=== PATIENT | male | born 1945 | race Caucasian/White ===

== ENCOUNTER 2019-12-15 16:17 | Emergency (ER) | payer MEDICARE ==
--- OUTSIDE RECORDS SUMMARY | 2019-12-15 16:20 | XMS REPORT ---
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, without long-term current use of insulin Problem Mixed hyperlipidemia E78.2 Active Problem Proteinuria, unspecified type R80.9 Active Problem Type 2 diabetes mellitus with E11.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, without long-term current use of insulin Problem Diverticular disease K57.90 Active Problem Thrombocytopenia D69.6 Active Problem Benign essential hypertension I10 Active Problem Arteriosclerosis of coronary I25.10 Active artery Problem Diabetes mellitus type 2, E11.9 Ac tive uncontrolled, without complications Problem Kidney stone N20.0 Active Medications Medication Code System Code Instructions Start End Date Status Dos age Date Glimepiride [facility] 56528467051 4 MG Orally Active 1 ta blet Twice a day with a meal Results No Known Results Summary Purpose [employer] Submission
--- OUTSIDE RECORDS SUMMARY | 2019-12-15 16:20 | XMS REPORT | Continuity of Care Document ---
:1945 Author Organization [facility] t Address [address] [place] [address] Care Team Providers Name Role Phone Unavailable Unavailable Unavailable Problems Condition Condition Condition Status Onset Resolution Last Treating Co mments Source Name Details Category Date Date Treatment Clinician Date Mixed Mixed Problem Active [facility] hyperlipid hyperlipid [facility] History of History of Problem Active [facility] coronary coronary [facility] artery artery [facility] stent stent l placement placement Outp ati ent Clinics Proteinuri Proteinuri Problem Active [facility] a, a, [facility] - unspecifie unspecifie Me moria d type d type l [facility] Diabetes Diabetes Problem Active [facility] mellitus mellitus [facility] - type 2, type 2, Memoria uncontroll uncontroll l ed, ed, Outpati without without ent complicati complicati Cl inics ons ons Kidney Kidney Problem Active [facility] stone stone [facility] Diverticul Diverticul Problem Active [facility] ar disease ar disease [place] [facility] - [facility] ent Clinics History of History of Problem Active [facility] placement placement [facility] - of of Memoria internal internal l cardiac cardiac Outpati defibrilla defibrilla en t tor tor Clinics Chronic Chronic Problem Active [facility] kidney kidney [facility] - disease, disease, Memori a stage 3 stage 3 l Outpati ent Clinics Benign Benign Problem Active [facility] essential essential [facility] - hypertensi hypertensi Me moria on on l Outpati ent Clinics Arterioscl Arterioscl Problem Active [facility] erosis of erosis of Luke s - coronary coronary Memori a artery artery l Outpati ent Clinics Type 2 Type [address] [facility] diabetes diabetes [facility] - mellitus mellitus Memori a with right with right l eye eye Outpati affected affected ent by mild by mild Clinics nonprolife nonprolife rative rative retinopath retinopath y without y without macular macular edema, edema, without without long-term long-term current current use of use of insulin insulin Thrombocyt Thrombocyt Problem Active [facility] openia openia [facility] Allergies, Adverse Reactions, Alerts Allergy Allergy Status Severity Reaction(s) Onset Inactive Treating Comm ents Source Name Type Date Date Clinician NSAIDS Adverse Active Info Not [facility] Reaction Available [facility] Ibuprofe Adverse Active Info Not [facility] n Reaction Available [facility] Medications Ordered Filled Start Stop Current Ordering Indication Dosage Frequency Signature Comments Components Source Medication Medication Date Date Medication? Clinician (SIG) Name Name Glimepiride Glimepiride Yes Vikash [address] [facility] Hickey with a [facility] Procedures This patient has no known procedures. Encounters Start End Encounter Admission Attending Care Care Encounter Source Date/Time Date/Time Type Type Clinicians Facility Department ID 2019-10-19 2019-10-19 [facility] [id number] [facility] 09:17:00 09:17:00 Code Fever [facility] ent [facility] 2019-10-05 2019-10-05 [facility] [id number] [facility] 08:15:00 08:15:00 Appinions Active [employer] [facility] ent Clinics 2019-07-06 2019-07-06 [facility] [id number] 08:30:00 08:30:00 Code Fever [facility] ent Clinics 2019-04-06 2019-04-06 [facility] [id number] [address] 11:00:00 11:00:00 Code Fever [employer] [facility] ent Clinics 2019-04-06 2019-04-06 [facility] [id number] 10:55:00 10:55:00 [employer] [facility] ent [facility] 2019-03-29 2019-03-29 [facility] [id number] 16:55:00 16:55:00 [employer] [facility] l Medicine Outpati ent Clinics 2019-01-13 2019-01-13 [facility] [id number] 10:00:00 10:00:00 [place] [employer] [facility] - [facility] l Medicine Outpati ent Clinics 2018-12-30 2018-12-30 [facility] [id number] 09:30:00 09:30:00 [place] [employer] s - Drive [facility] l Medicine Outpati ent Clinics 2018-10-04 2018-10-04 [facility] [id number] 13:26:00 13:26:00 [place] [employer] s - Drive [facility] Medicine Outpati ent Clinics 2018-09-30 2018-09-30 [facility] [id number] 15:49:00 15:49:00 [place] - [facility] Medicine Outpati ent Clinics 2018-09-29 2018-09-29 [facility] [id number] 09:45:00 09:45:00 [place] - [facility] Medicine Outpati ent Clinics 2018-06-28 2018-06-28 [facility] [id number] 10:15:00 10:15:00 [place] - [facility] Medicine Outpati ent Clinics 2018-05-18 2018-05-18 [facility] [id number] 13[facility]42:00 13:42:00 [place] [employer] s - Drive [facility] Medicine Medicine Outpati ent Clinics 2018-03-29 2018-03-29 [facility] [id number] 10:15:00 10:15:00 [place] [employer] s - Drive [facility] Medicine Outpati ent Clinics 2018-03-24 2018-03-24 [facility] [id number] 15:39:00 15:39:00 [place] [employer] s - Drive [facility] l Medicine Outpati ent Clinics 2017-12-31 2017-12-31 [facility] [id number] 17:03:00 17:03:00 t [employer] - [employer] [facility] Medicine Outpati ent Clinics 2017-12-30 2017-12-30 [facility] [id number] 15:18:00 15:18:00 t [employer] [facility] Medicine Outpati ent Clinics 2017-12-24 2017-12-24 [facility] [id number] 11:23:00 11:23:00 t [employer] [facility] Medicine Outpati ent Clinics 2017-12-24 2017-12-24 [facility] [id number] 10[facility]00:00 10:00:00 t [employer] [facility] Medicine Outpati ent Clinics 2017-10-02 2017-10-02 [facility] [id number] 14:52:00 14:52:00 t [employer] [facility] Medicine Outpati ent Clinics 2017-09-08 2017-09-08 [facility] [id number] 10:15:00 10:15:00 t [employer] [facility] Medicine Outpati ent Clinics Results This patient has no known results.
--- OUTSIDE RECORDS SUMMARY | 2019-12-15 16:20 | XMS REPORT ---
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, without long-term current use of insulin Assessment Anemia, unspecified type D64.9 Act yuliana Problem Diverticular disease K57.90 Active Assessment Thrombocytopenia D69.6 Active Assessment History of coronary artery stent Z95.5 Active placement Problem Thrombocytopenia D69.6 Active Problem Benign essential hypertension I10 Active Problem Arteriosclerosis of coronary I25.10 Active artery Problem Diabetes mellitus type 2, E11.9 Ac tive uncontrolled, without complications Problem Kidney stone N20.0 Active Assessment Diverticular disease K57.90 Active Assessment Chronic kidney disease, stage 3 N18.3 Active Assessment Mixed hyperlipidemia E78.2 Active Assessment Proteinuria, unspecified type R80.9 Active Assessment Type 2 diabetes mellitus with E11.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 89793042350 16 MG Active TAKE 1 Cilexetil TABLET BY MOUTH ONCE DAILY FOR 90 DAYS Rosuvastatin ND 84286477448 20 MG Oral Active TAKE 1 Calcium TABLET BY MOUTH ONCE DAILY Furosemide ND 15599583917 40 MG Orally Active 1 ta blet Once a day MetFORMIN HCl [facility] 85387481570 500 MG Oral Active ta ke 1 ER Once a day tablet by mouth once daily Candesartan [facility] 46682206591 16 MG Orally Active 1 t ablet Cilexetil Once a day Vitamin D3 [facility] 38050446484 1000 UNIT Active 1 table t Orally Once a day Glimepiride [facility] 19329086011 4 MG Orally Active 1 ta blet Twice a day with breakfast or the first main meal of the day Tamsulosin HCl [facility] 49002904352 0.4 MG Orally Active 1 capsule Once a day Norvasc [facility] 57336691150 5 MG Orally Active 1 tablet Once a day Simvastatin [facility] 11948998777 40 MG Orally Inactive 1 tablet in Once a day the evening Aspirin 81 [facility] 78794004298 81 MG Orally Active 1 ta blet Once a day Results No Known Results Summary Purpose eClinicalWorks Submission
[2019-12-15] MEDS ORDERED: CEFTRIAXONE/SWI 1gm 1 GM/10 ML SYR ONE (17:24)
--- NOTE | 2019-12-15 17:27 | ER ---
Nurse's Notes [facility] Name: Jonathan Presley Jr Age: 74 yrs Sex: Male : 1945 Arrival Date: 12/15/2019 Time: 16:19 Bed 20 Private MD: Diagnosis: Acute prostatitis Presentation: 12/14 16:33 Chief complaint: Patient states: Seen by Dr. Peralta today and had outpatient labs ss obtained. Pt was instructed to come to ER because his white count was elevated. C/o burning with urination x 2-3 days. Chief complaint:. Coronavirus screen: Client denies travel out of the [place] in the last 14 days. Ebola Screen: Patient denies exposure to infectious person. Patient denies travel to an Ebola-affected area in the 21 days before illness onset. Initial Sepsis Screen: Does the patient meet any 2 criteria? No. Patient's initial sepsis screen is negative. Does the patient have a suspected source of infection? Yes: Dysuria/Frequency/Urgency/UTI. Risk Assessment: Do you want to hurt yourself or someone else? Patient reports no desire to harm self or others. Onset of symptoms was December 15, 2019. 16:33 Method Of Arrival: Ambulatory ss 16:33 Acuity: KARELY 3 ss Triage Assessment: 16:57 General: Appears in no apparent distress. Behavior is calm, cooperative, appropriate ll2 for age. 17:18 Pain: Denies pain. ll2 Historical: - Allergies: 16:36 Ibuprofen; ss - PMHx: 16:36 Diabetes; Kidney stones; ss - PSHx: 16:36 heart cath; Defibrillator; ss - Immunization history:: Adult Immunizations up to date. - Social history:: Smoking status: Patient denies any tobacco usage or history of. - Family history:: not pertinent. - Hospitalizations: : No recent hospitalization is reported. Screenin:56 Abuse screen: Denies threats or abuse. Nutritional screening: No deficits noted. ll2 Tuberculosis screening: No symptoms or risk factors identified. Fall Risk None identified. Assessment: 16:55 Reassessment: shaver to bedside after reviewing labs and CT scan from today, decision to ll2 hospitalize due to prostitis, discussing with pt at bedside. Vital Signs: 16:33 BP 126 / 76; Pulse 77; Resp 16; Temp 98.9(TE); Pulse Ox 97% on R/A; Weight 89.81 kg; Height 5 ft. 9 in. (175.26 cm); Pain 0/10; 16:56 BP 126 / 76; Pulse 77; Resp 16; Temp 98.9; Pulse Ox 98% on R/A; ll2 16:33 Body Mass Index 29.24 (89.81 kg, 175.26 cm) ED Course: 16:19 Patient arrived in ED. ag5 16:35 Triage completed. ss 16:36 Arm band placed on right wrist. ss 16:49 Rachid Shaver MD is Attending Physician. rn 16:55 Lashanda Rebollar, LURDES is Primary Nurse. ll2 16:57 Patient has correct armband on for positive identification. Bed in low position. Side ll2 rails up X 1. Pulse ox on. NIBP on. 17:39 No provider procedures requiring assistance completed. Inserted saline lock: 20 gauge ll2 in left forearm, using aseptic technique. ,using aseptic technique. inserted by Stephanie CHATMAN. 17:40 IV discontinued, intact, bleeding controlled, No redness/swelling at site. Pressure ll2 dressing applied. Administered Medications: 17:16 Drug: Rocephin 1 grams Route: IV; Rate: calculated rate; Site: right forearm; ll2 17:17 Follow up: IV Status: Completed infusion ll2 17:17 Follow up: Response: No adverse reaction ll2 Outcome: 17:26 Discharge ordered by . rn 17:39 Discharged to home ambulatory. ll2 17:39 Condition: stable 17:39 Discharge instructions given to patient, Instructed on discharge instructions, follow up and referral plans. medication usage, Demonstrated understanding of instructions, follow-up care, medications. 17:41 Patient left the ED. ll2 Signatures: Rachid Shaver MD MD rn Smirch, Shelby, RN RN [facility] Lashanda Rebollar, LURDES RN ll2
--- NOTE | 2019-12-15 17:27 | EDPHYS ---
Physician Documentation [facility] Name: Jonathan Presley Jr Age: 74 yrs Sex: Male : 1945 Arrival Date: 12/15/2019 Time: 16:19 Bed 20 Private MD: ED Physician Rachid Shaver HPI: 12/14 17:01 This 74 yrs old Male presents to ER via Ambulatory with complaints of UTI. rn 17:01 The patient presents with urinary symptoms, dribbling of urine. Onset: The rn symptoms/episode began/occurred 2 day(s) ago. Modifying factors: The symptoms are alleviated by nothing, the symptoms are aggravated by nothing. Associated signs and symptoms: Pertinent negatives: abdominal pain, fever. Severity of symptoms: At their worst the symptoms were mild, in the emergency department the symptoms are unchanged. The patient has experienced similar episodes in the past. Reports sent here by Dr. Peralta for UTI and elevated white blood cell count. No fever/chills. Reports recent dribbling but able to urinate. Reports had CT abdomen and bloodwork and UTI today. Reports doesn't feel ill, but can tell something is happening, similar to previous UTIs.. Historical: - Allergies: 16:36 Ibuprofen; ss - PMHx: 16:36 Diabetes; Kidney stones; ss - PSHx: 16:36 heart cath; Defibrillator; ss - Immunization history:: Adult Immunizations up to date. - Social history:: Smoking status: Patient denies any tobacco usage or history of. - Family history:: not pertinent. - Hospitalizations: : No recent hospitalization is reported. ROS: 17:01 Constitutional: Negative for fever, chills, and weight loss, Eyes: Negative for injury, rn pain, redness, and discharge, Cardiovascular: Negative for chest pain, palpitations, and edema, Respiratory: Negative for shortness of breath, cough, wheezing, and pleuritic chest pain, Abdomen/GI: Negative for nausea, vomiting, diarrhea, and constipation, : Negative for injury, bleeding, discharge, and swelling, MS/Extremity: Negative for injury and deformity, Skin: Negative for injury, rash, and discoloration, Neuro: Negative for headache, weakness, numbness, tingling, and seizure. Exam: 17:01 Constitutional: This is a well developed, well nourished patient who is awake, alert, rn and in no acute distress. Head/Face: Normocephalic, atraumatic. Cardiovascular: Regular rate and rhythm. No pulse deficits. Respiratory: No increased work of breathing, no retractions or nasal flaring. Abdomen/GI: soft, non-tender Skin: Warm, dry MS/ Extremity: Pulses equal, no cyanosis. Neurovascular intact. Full, normal range of motion. Equal circumference. Neuro: Awake and alert, GCS 15 Vital Signs: 16:33 BP 126 / 76; Pulse 77; Resp 16; Temp 98.9(TE); Pulse Ox 97% on R/A; Weight 89.81 kg; ss Height 5 ft. 9 in. (175.26 cm); Pain 0/10; 16:56 BP 126 / 76; Pulse 77; Resp 16; Temp 98.9; Pulse Ox 98% on R/A; ll2 16:33 Body Mass Index 29.24 (89.81 kg, 175.26 cm) ss MDM: 16:49 Patient medically screened. rn 17:23 Differential diagnosis: UTI, prostatitis, urethritis. Data reviewed: vital signs, rn nurses notes, lab test result(s), radiologic studies, CT scan, and as a result, I will admit patient. Counseling: I had a detailed discussion with the patient and/or guardian regarding: the historical points, exam findings, and any diagnostic results supporting the discharge/admit diagnosis, lab results, radiology results, the need for further work-up and treatment in the hospital. ED course: Notified patient of recommendation to admit to hospital, he states has with MS at home along with children at home, and does not want to be admitted to hospital unless absolutely needs to. Patient with normal vitals, + prostatitis, able to urinate, understands risks of going home and oral abx vs IV abx in hospital, wants to go home and will return if symptoms worsen. . 12/14 16:59 Order name: IV Start; Complete Time: 17:02 rn Administered Medications: 17:16 Drug: Rocephin 1 grams Route: IV; Rate: calculated rate; Site: right forearm; ll2 17:17 Follow up: IV Status: Completed infusion ll2 17:17 Follow up: Response: No adverse reaction ll2 Disposition: 12/15/19 17:26 Discharged to Home. Impression: Acute prostatitis. - Condition is Stable. - Discharge Instructions: Prostatitis. - Prescriptions for cefpodoxime 100 mg Oral Tablet - take 2 tablet by ORAL route every 12 hours for 10 days take with food; 40 tablet. - Medication Reconciliation Form, Thank You Letter, Antibiotic Education, Prescription Opioid Use form. - Follow up: Private Physician; When: 2 - 3 days; Reason: Recheck today's complaints, Re-evaluation by your physician. - Problem is new. - Symptoms are unchanged. Signatures: Rachid Shaver MD MD rn Smirch, Shelby, RN RN Lashanda Rebollar RN RN ll2 Corrections: (The following items were deleted from the chart) 17:41 17:26 12/15/2019 17:26 Discharged to Home. Impression: Acute prostatitis. Condition is ll2 Stable. Forms are Medication Reconciliation Form, Thank You Letter, Antibiotic Education, Prescription Opioid Use. Follow up: Private Physician; When: 2 - 3 days; Reason: Recheck today's complaints, Re-evaluation by your physician. Problem is new. Symptoms are unchanged. rn
[2019-12-15 17:54] VITALS: BP 126/76; TEMP 98.9
[2019-12-15 17:59] VITALS: O2SAT 98
== END 2019-12-15 17:41 | disposition home or self-care (01) ==
LOC: ER 16:17
DX: N41.0 Acute prostatitis (principal); Z88.6 Allergy status to analgesic agent; Z87.442 Personal history of urinary calculi; Z95.810 Presence of automatic (implantable) cardiac defibrillator
CPT/HCPCS: 96374; 99283; J0696

== ENCOUNTER 2021-04-30 06:33 | Day surgery (SDC) | payer OTHER ==
[2021-04-25 13:55] LABS: Absolute Lymphocytes (CBC) 1.4 K/uL (0.7-4.9); Hematocrit 36.3 % (39.6-49.0); Lymphocytes % 16.2 % (15.3-44.8); MPV 8.4 fL (7.6-11.3); RBC Red Blood Cell Count 4.23 M/uL (4.33-5.43)
--- NOTE | 2021-04-25 14:01 | RAD REPORT ---
EXAM DESCRIPTION: RAD - Chest Pa And Lat (2 Views) - 04/25/2021 1:52 pm CLINICAL HISTORY: Pre op pending heart cath Chest pain. COMPARISON: ABDOMEN 1 VIEW KUB dated 10/27/2013 FINDINGS: The lungs are clear. The heart is normal in size. No displaced fractures. Single lead pace r/ defibrillator device. IMPRESSION: No acute or concerning finding suspected.
[2021-04-25 14:06] LABS: Protime INR 0.99
[2021-04-25 14:23] LABS: Potassium 4.4 mmol/L (3.5-5.1)
[2021-04-30] MEDS ORDERED: NA CHLORIDE 0.9% 500 ML ONE (06:52)
[2021-04-30] MEDS ORDERED: HEPA 1000U/500MLS 1,000 UNIT/500 ML BAG IV ONE (06:54)
[2021-04-30] MEDS ORDERED: LIDOCAINE 1% 20 ML MDV ONE (06:54)
[2021-04-30] MEDS ORDERED: FENTANYL CITR 100 MCG/2 ML ONE (07:03)
[2021-04-30] MEDS ORDERED: NA CHLORIDE 0.9% 0 ML ONE (07:04)
[2021-04-30] MEDS ORDERED: ATROPINE SULF 1 MG/10 ML SYR IV ONE (07:04)
[2021-04-30] MEDS ORDERED: MIDAZOLAM HCL 2 MG/2 ML INJ ONE ×2 (07:04→07:29)
--- NOTE | 2021-04-30 08:49 | OP ---
Surgeon: Roberto Pina MD Criminology Teacher: Ms. Darien Brewster Reason For Admission: Left heart catheterization, selective coronary arteriogram. Indication: Coronary artery disease, status post stents in the past with unstable angina. Procedure In Detail: In the cathode maker, the patient was prepped and draped in the routine sterile [facility] ion. He was given Versed and fentanyl for sedation. A 6-Japanese sheath was introduced in the right c ommon femoral artery successfully using the Seldinger technique and 10 cc of Xylocaine. The JL4 cath eter cannulated the left main. His left main had some mild plaquing. He had a patent proximal LAD s tent and 100% occlusion of his first obtuse marginal. Small circumflex nondominant. The JR4 cannula champ the RCA. He had a 99% long ostial RCA stenosis with SPENCER 1 flow, very right dominant. The patie nt tolerated the procedure well. There were no complications. Blood Loss: 5 mL. Postoperative Diagnosis: High risk coronary artery disease. He needs an intervention. I will plan to have Dr. Strauss review the film and maybe do intervention in [place]. He may need an atherectomy of the RCA. The patient had [employer] done for closure of his groin. He will be in the hospital for 2 hours and he will go home after that. We will make arrangements for the outpatien t procedures. EFRAIN/ALICIA Voice ID: [id number] Report ID: [id number]
[2021-04-30 09:25] VITALS: BP 109/68; O2SAT 97
== END 2021-04-30 09:30 | disposition home or self-care (01) ==
LOC: CCL 06:33
DX: I25.110 Atherosclerotic heart disease of native coronary artery with unstable angina pectoris (principal); I25.82 Chronic total occlusion of coronary artery; I65.21 Occlusion and stenosis of right carotid artery; I10 Essential (primary) hypertension; E78.2 Mixed hyperlipidemia; E11.9 Type 2 diabetes mellitus without complications; Z95.5 Presence of coronary angioplasty implant and graft; Z95.810 Presence of automatic (implantable) cardiac defibrillator; Z82.49 Family history of ischemic heart disease and other diseases of the circulatory system
CPT/HCPCS: 85025; 80048; 36415; 85610; 82947; 85730; 71046; 93454; U0002; C1893; J2250; J3010; J7040; J1644; J0583

== ENCOUNTER 2023-12-29 07:13 | Day surgery (SDC) | payer OTHER ==
[2023-12-25 13:18] LABS: Absolute Basophils 0.1 K/uL (0-0.5); Absolute Eosinophils 0.4 K/uL (0-0.5); Absolute Lymphocytes (CBC) 1.7 K/uL (0.7-4.9); Absolute Monocytes 0.9 K/uL (0.1-1.3); Absolute Neutrophil 7.3 K/uL (1.8-8.0); Basophils % 0.6 % (0-1.3); Eosinophils % 4.2 % (0-4.4); Hematocrit 33.6 % (39.6-49.0); Hemoglobin 10.8 g/dL (13.6-17.9); Lymphocytes % 16.1 % (15.3-44.8); MCH 27.5 pg (27.0-35.0); MCHC 32.2 g/dL (32.0-36.0); MCV 85.3 fL (80-100); MPV 9.6 fL (7.6-11.3); Monocytes % 8.3 % (3.3-12.3); Neutrophils % 70.8 % (41.7-73.7); Platelets 136 thou/uL (152-406); RBC Red Blood Cell Count 3.94 M/uL (4.33-5.43); Red Cell Distribution Width 16.3 % (12.1-15.2)
[2023-12-25 13:29] LABS: Anion Gap 8.1 mEq/L (5.0-15.0); Potassium 5.1 mEq/L (3.5-5.1)
[2023-12-29] MEDS ORDERED: GLYCOPYRROLATE 0.2 MG/ML SYR ONE (07:19)
[2023-12-29] MEDS ORDERED: LIDOCAINE 1% MPF 30 ML VIAL ONE (07:19)
[2023-12-29] MEDS ORDERED: propofoL 200 MG/20 ML VIAL IV ONE ×2 (07:19→08:50)
[2023-12-29] MEDS ORDERED: NA CHLORIDE 0.9% 1,000 ML ONE (07:32)
[2023-12-29] MEDS ORDERED: EPINEPHRINE 1 MG/ML VIAL ONE (08:01)
[2023-12-29 10:05] VITALS: TEMP 97
[2023-12-29 10:08] VITALS: BP 105/59; O2SAT 100
== END 2023-12-29 09:48 | disposition home or self-care (01) ==
LOC: OR 07:13
PROVIDERS: ATTEND Internal Medicine Gastroenterology
PROC: 0DBL8ZX Excision of Transverse Colon, Via Natural or Artificial Opening Endoscopic, Diagnostic (ICD-10-PCS; 2023-12-29)
PROC: 0DBN8ZX Excision of Sigmoid Colon, Via Natural or Artificial Opening Endoscopic, Diagnostic (ICD-10-PCS; 2023-12-29)
PROC: 0DBK8ZX Excision of Ascending Colon, Via Natural or Artificial Opening Endoscopic, Diagnostic (ICD-10-PCS; principal; 2023-12-29 08:30)
DX: K92.1 Melena (principal); I10 Essential (primary) hypertension; E11.9 Type 2 diabetes mellitus without complications; N18.9 Chronic kidney disease, unspecified; I25.2 Old myocardial infarction; D12.2 Benign neoplasm of ascending colon; D12.3 Benign neoplasm of transverse colon; D12.5 Benign neoplasm of sigmoid colon; K57.30 Diverticulosis of large intestine without perforation or abscess without bleeding
CPT/HCPCS: 85025; 80048; 36415; 82947 ×2; 88305; 45385; J2704 ×2; J2001; J0171; J7030

== ENCOUNTER 2024-01-07 13:20 | Day surgery (SDC) | payer OTHER ==
[2024-01-06 11:22] LABS: PT Prothrombin Time 10.9 SECONDS (9.4-12.5); PTT, Activated Partial Thromb 33.1 SECONDS (24.3-36.9); Protime INR 0.97
--- NOTE | 2024-01-06 11:24 | RAD REPORT ---
EXAMINATION: TWO VIEW CHEST XR CLINICAL INDICATION: Male, 78 years old. [facility] MAIN Hypertension PRE OP TECHNIQUE: 2 view radiographs of the chest were performed. COMPARISON: 05/07/2022 and 04/25/2021 FINDINGS: The lungs are well inflated and clear. Left chest wall pacer in place. No pneumothorax or sizable eff usion. The heart is normal in size. Mediastinal contours are unremarkable. IMPRESSION: No acute or significant abnormalities.
--- NOTE | 2024-01-07 11:53 | EKG ---
Test Date: 2024-01-06 Test Time: 10:43:28 Milk Pasteurizer: CARTER MEASUREMENT RESULTS: Intervals: Rate: 63 NM: 208 QRSD: 76 QT: 384 QTc: 392 [place]: P: 48 NM: 208 QRS: 37 T: 13 INTERPRETIVE STATEMENTS: Sinus rhythm with occasional premature ventricular complexes Low voltage QRS Nonspecific T wave abnormality Abnormal ECG No previous ECG available for comparison Electronically Signed On 01-07-24 11:51:08 CDT by Ashkan Bazan
[2024-01-07 14:04] LABS: Anion Gap 6.5 mEq/L (5.0-15.0); Potassium 4.5 mEq/L (3.5-5.1)
[2024-01-07] MEDS ORDERED: HEPA 1000U/500MLS 2,000 UNIT/1,000 ML BAG IV ONE (15:14)
[2024-01-07] MEDS ORDERED: LIDOCAINE 1% 20 ML MDV ONE (15:14)
[2024-01-07] MEDS ORDERED: VERAPAMIL HCL 10 MG/4 ML VIAL IV ONE (15:14)
[2024-01-07] MEDS ORDERED: HEPARIN 10,000 UNIT/10 ML VIAL IV ONE (15:14)
[2024-01-07] MEDS ORDERED: TICAGRELOR 90 MG TABLET PO ONE (15:15)
[2024-01-07] MEDS ORDERED: CLOPIDOGREL 75 MG TABLET ONE (15:15)
[2024-01-07] MEDS ORDERED: HEPARIN 5000 UNIT/ML 1 ML VIAL ONE (15:15)
[2024-01-07] MEDS ORDERED: ATROPINE SULF 1 MG/10 ML SYR IV ONE (15:15)
[2024-01-07] MEDS ORDERED: ASPIRIN 325 MG TAB ONE (15:15)
[2024-01-07] MEDS ORDERED: MIDAZOLAM HCL 2 MG/2 ML INJ ONE (15:24)
[2024-01-07] MEDS ORDERED: FENTANYL CITR 100 MCG/2 ML ONE (15:24)
[2024-01-07] MEDS: NA CHLORIDE 0.9% 500 ML ONE (15:25)
[2024-01-07 17:18] VITALS: TEMP 97.9
[2024-01-07 18:06] VITALS: BP 136/76; O2SAT 96
== END 2024-01-07 18:08 | disposition home or self-care (01) ==
LOC: CCL 13:20
PROVIDERS: ATTEND Internal Medicine
DX: I25.10 Atherosclerotic heart disease of native coronary artery without angina pectoris (principal); I25.82 Chronic total occlusion of coronary artery; T82.855A Stenosis of coronary artery stent, initial encounter; I34.0 Nonrheumatic mitral (valve) insufficiency; I65.21 Occlusion and stenosis of right carotid artery; I10 Essential (primary) hypertension; E11.9 Type 2 diabetes mellitus without complications; E78.5 Hyperlipidemia, unspecified; Z79.82 Long term (current) use of aspirin; Z79.84 Long term (current) use of oral hypoglycemic drugs; Z79.899 Other long term (current) drug therapy; Z88.8 Allergy status to other drugs, medicaments and biological substances; Z82.49 Family history of ischemic heart disease and other diseases of the circulatory system
CPT/HCPCS: 93005; 80048; 36415 ×2; 85610; 82947; 85730; 71046; 93458; 76937; C1893; Q9966; J1644; J2001; J2250; J3010; J7040; 99152; J0461